=== PATIENT | male | born 1960 | race Caucasian/White ===

== ENCOUNTER 2017-11-02 09:28 | Outpatient (CLI) | payer OTHER ==
--- NOTE | 2017-11-02 19:35 | RAD ---
RIGHT KNEE TWO VIEWS: 11/02/17 A large joint effusion is present. No fracture was seen. The articular surfaces are smooth. At most, there might be some minimal medial joint space narrowing, but this is an equivocal finding. IMPRESSION: Large joint effusion but no acute bony changes. POS: HOME
== END 2017-11-02 09:29 | disposition home or self-care (01) ==
LOC: BURRAD 09:28
PROVIDERS: ATTEND Physician Assistant
DX: M25.561 Pain in right knee (principal); M25.461 Effusion, right knee

== ENCOUNTER 2020-11-17 14:11 | Outpatient (CLI) | payer OTHER ==
--- NOTE | 2020-11-17 17:45 | RAD ---
LEFT ELBOW FOUR VIEWS: 11/17/20 There is probably some soft tissue swelling posterior to the distal humerus. Some calcifications are seen in the soft tissues here which I suspect are longstanding. Calcification near the medial humeral condyle could relate to prior tendonitis, as might the one near the olecranon process. Some minimal bony spurring is seen on the coronoid process. Currently, there are no findings strongly suggestive of an acute fracture. IMPRESSION: Chronic changes but no definite acute bony finding. POS: HOME
--- NOTE | 2020-11-17 17:46 | RAD ---
CERVICAL SPINE THREE VIEWS: 11/17/20 There is slight loss of the normal lordosis. The C1 to dens distance is normal and the soft tissues a re normal in thickness. Disc space narrowing is present at C5-C6 and C6-C7 along with anterior and po sterior osteophytes at these levels. All bones appear intact. IMPRESSION: Substantial degenerative change but no acute findings. POS: HOME
== END 2020-11-17 14:12 | disposition home or self-care (01) ==
LOC: BURRAD 14:11
PROVIDERS: ATTEND Physician Assistant
DX: M54.2 Cervicalgia (principal); M25.522 Pain in left elbow; M25.422 Effusion, left elbow; M47.812 Spondylosis without myelopathy or radiculopathy, cervical region; W00.0XXA Fall on same level due to ice and snow, initial encounter
CPT/HCPCS: 72040

== ENCOUNTER 2021-10-06 09:19 | Outpatient (CLI) | payer OTHER | END 2021-10-06 09:20 | disposition home or self-care (01) | LOC: BURRAD 09:19 | PROVIDERS: ATTEND Physician Assistant | DX: Z01.818 Encounter for other preprocedural examination (principal) | CPT/HCPCS: 71046 ==

== ENCOUNTER 2021-12-08 11:50 | Outpatient (CLI) | payer OTHER | END 2021-12-08 11:51 | disposition home or self-care (01) | LOC: BURRAD 11:50 | PROVIDERS: ATTEND Neurological Surgery | DX: M48.07 Spinal stenosis, lumbosacral region (principal); M47.816 Spondylosis without myelopathy or radiculopathy, lumbar region; M41.9 Scoliosis, unspecified; Z98.1 Arthrodesis status | CPT/HCPCS: 72100 ==

== ENCOUNTER 2021-12-26 10:01 | Outpatient (CLI) | payer OTHER | END 2021-12-26 10:02 | disposition home or self-care (01) | LOC: BURRAD 10:01 | PROVIDERS: ATTEND Neurological Surgery | DX: M51.26 Other intervertebral disc displacement, lumbar region (principal); M54.2 Cervicalgia; M47.816 Spondylosis without myelopathy or radiculopathy, lumbar region; M50.122 Cervical disc disorder at C5-C6 level with radiculopathy; M43.12 Spondylolisthesis, cervical region | CPT/HCPCS: 72050; 72100 ==